=== PATIENT | male | born 1945 | race Caucasian/White ===

== ENCOUNTER 2021-01-01 11:49 | Observation (INO) ==
[2021-01-01] MEDS ORDERED: NITROGLYCERIN 2% OINTMENT 30GM TUBE EXT STA (11:55)
--- NOTE | 2021-01-01 12:09 | Emergency Department Note ---
History of Present Illness General Chief complaint: Chest Pain Stated complaint: CHEST PAIN,PAIN AND TINGLING DOWN ARM Time Seen by Provider: 01/01/21 11:55 Source: patient History of Present Illness Provider complaint: Chest pain Onset (ago): hour(s) Location: chest and left Radiation: extremity (Left shoulder and arm) Pain Consistency: + constant Maximum Pain Intensity: 6 Quality: + aching Relieved By: + none Exacerbated By: + none Associated symptoms: no chest pain, no cough, no diaphoresis, no fever/chills, no nausea/vomiting or no shortness of breath This is a 75-year-old male who presents with chest discomfort starting an hour prior to arrival. He describes it as an ache on the left side of his chest rating into his left shoulder and arm. He rates it as 6/10 already. No associated shortness of breath, diaphoresis, nausea or lightheadedness. He denies any history of cardiac disease. He is prediabetic and takes a baby aspirin daily. He states that he took a full dose aspirin just prior to arrival. He denies any recent illness, fever, cough or cold symptoms, abdominal pain, vomiting, diarrhea, urinary symptoms, leg swelling or pain or recent immobilization. He is vaccinated for COVID-19. Home Medications Medication Instructions Recorded Confirmed Type rosuvastatin 40 mg tablet 40 mg PO QAM #0 tab 09/16/12 01/01/21 History aspirin 81 mg chewable tablet 81 mg PO Q OTHER DAY #0 03/18/13 01/01/21 History metformin 500 mg tablet 500 mg PO BID 12/16/17 01/01/21 History oodgploo-mxq-iudii acid 300 1 tab PO QAM 12/16/17 01/01/21 History mcg-lycopene 600 mcg-lutein 300 mcg tablet (Centrum Silver Men) aspirin 325 mg tablet (Miguel 325 mg PO ONCE 01/01/21 01/01/21 History Aspirin) Allergies Allergy/AdvReac Type Severity Reaction Status Date / Time erythromycin base Allergy Intermediate Rash/ Unverified 01/01/21 13:10 Itching Past Med/Surg History Medical History Diabetes Hyperlipidemia Hypertension Family History Other No significant family history Social History Smoking Status: Never smoker Tobacco Type: Cigarettes Hx Alcohol Use: Yes Alcohol type: wine Hx Substance Use: No Preferred Language: Chadian Communication Ability: Effective Accounting Teacher Required: No Beliefs That Will Affect Care: None Current Living Situation: Alone Other Information That Helps Us Care for You: No Feels Safe at Home: Yes Safety Concerns: Feels Safe At This Time Assistive Devices: Glasses Review of Systems See HPI for pertinent positives & negatives. and A total of 10 systems reviewed and were otherwise negative Physical Exam Vital Signs Vital Signs - 24 hr 01/01/21 11:41 01/01/21 11:52 01/01/21 12:02 Temperature 36.7 C Temperature Source Temporal Artery Scan Pulse Rate 79 90 74 Pulse Rate [Apical] Pulse Rate from SpO2 Sensor 74 Respiratory Rate 19 18 13 Respiratory Effort / Characteristics Respiratory Depth Respiratory Pattern Blood Pressure 182/99 H 212/90 H 199/89 H Blood Pressure [Left Arm] Blood Pressure Mean 126 130 125 Blood Pressure Mean [Left Arm] Blood Pressure Position Sitting Pulse Oximetry 99 100 Oxygen Delivery Method Room Air Sepsis Recent Fever Within 48 Hours No Sepsis New/Unexplained Change in Mental Status N/A Sepsis Action Taken by Nursing No Action Required 01/01/21 12:12 01/01/21 12:13 01/01/21 12:30 Temperature Temperature Source Pulse Rate 80 71 69 Pulse Rate [Apical] 74 Pulse Rate from SpO2 Sensor 78 69 Respiratory Rate 23 20 19 Respiratory Effort / Characteristics Non-Labored Spontaneous Respiratory Depth Normal Respiratory Pattern Regular Blood Pressure 179/80 H 178/76 H Blood Pressure [Left Arm] 179/80 H Blood Pressure Mean 113 110 Blood Pressure Mean [Left Arm] 113 Blood Pressure Position Pulse Oximetry 99 99 98 Oxygen Delivery Method Room Air Sepsis Recent Fever Within 48 Hours Sepsis New/Unexplained Change in Mental Status Sepsis Action Taken by Nursing 01/01/21 13:00 01/01/21 13:30 01/01/21 14:00 Temperature Temperature Source Pulse Rate 70 62 64 Pulse Rate [Apical] Pulse Rate from SpO2 Sensor 71 62 64 Respiratory Rate 23 23 17 Respiratory Effort / Characteristics Respiratory Depth Respiratory Pattern Blood Pressure 166/64 H 163/75 H 158/75 H Blood Pressure [Left Arm] Blood Pressure Mean 98 104 102 Blood Pressure Mean [Left Arm] Blood Pressure Position Pulse Oximetry 98 97 97 Oxygen Delivery Method Sepsis Recent Fever Within 48 Hours Sepsis New/Unexplained Change in Mental Status Sepsis Action Taken by Nursing Constitutional: Vital signs reviewed. Eyes: Pupils are equal round reactive to light. Conjunctiva are noninjected. ENT: Pharynx is clear without erythema or exudate. Mucous membranes are moist. Neck supple without meningeal signs. Respiratory: Clear to auscultation bilaterally. Breath sounds are equal bi laterally. Cardiovascular: Regular rate and rhythm. No rubs or gallops. GI: Soft, nondistended and nontender. Bowel sounds are present. Musculoskeletal: No peripheral edema. No lower extremity tenderness. Integumentary: No cyanosis. or jaundice. Neurological: The patient is awake and alert. No focal deficits. Psychiatric: Normal affect. Slightly anxious. Course Administered Medications Discontinued Medications Nitroglycerin (Nitroglycerin 2% Ointment 30gm Tube) 1 inch EXT NOW STA Stop: 01/01/21 11:56 Last Admin: 01/01/21 12:10 Dose: 1 inch Documented by: [id number] Medical Decision Making Differential Diagnosis Unstable angina, MA, anxiety, GERD, pneumonia Medical Records Attestation: I reviewed the patient's medical records. I did perform a limited focused review of portions of the patient's old chart on the electronic medical record. The patient was seen here in 2018 for chest tightness and shortness of breath. He had to negative troponins here and was discharged for outpatient follow-up. Home Medications Current Medication List: was personally reviewed by me Laboratory Data Attestation: I reviewed the patient's lab results. Result diagrams: 01/01/21 12:08 01/01/21 12:08 Lab Results 01/01/21 01/01/21 01/01/21 Range/Units 12:08 12:08 12:08 WBC 6.87 (4.8-10.8) K/uL RBC 5.45 (4.7-6.1) M/uL Hgb 16.2 (14.0-18.0) g/dL Hct 49.0 (42-52) % MCV 89.9 (80-100) fL MCH 29.7 (25-34) pg MCHC 33.1 (32-36) g/dL RDW Std Deviation 44.3 (36.4-46.3) fL RDW Coeff of Alise 13.5 (11.5-14.5) % Plt Count 202 (130-400) K/uL MPV 10.9 H (7.4-10.4) fL Immature Gran % (Auto) 0.0 % Neut % (Auto) 42.2 % Lymph % (Auto) 48.9 % Mcmullen % (Auto) 7.1 % Eos % (Auto) 1.7 % Baso % (Auto) 0.1 % Neut # (Auto) 2.89 (1.4-6.5) K/uL Lymph # (Auto) 3.36 (1.2-3.4) K/uL Mcmullen # (Auto) 0.49 (0.11-0.59) K/uL Eos # (Auto) 0.12 (0-0.5) K/uL Baso # (Auto) 0.01 (0-0.2) K/uL Immature Gran # (Auto) 0.00 (0.00-0.02) K/uL APTT 23.8 (21.0-31.0) Seconds PTT Ratio 0.9 Sodium 141 (136-145) mmol/L Potassium 4.0 (3.5-5.1) mmol/L Chloride 105 (98-107) mmol/L Carbon Dioxide 25 (21-32) mmol/L Anion Gap 11.0 (3-11) BUN 16 (7-18) mg/dl Creatinine 1.06 (0.6-1.4) mg/dl Est Cr Clr Drug Dosing 67.3 ml/min Est GFR ( Amer) 79.7 ml/min Est GFR (Non-Af Amer) 68.8 ml/min BUN/Creatinine Ratio 14.7 (10-20) Glucose 100 H (70-99) mg/dl Calcium 9.3 (8.5-10.1) mg/dl Total Bilirubin 0.6 (0.2-1) mg/dl AST 25 (15-37) U/L ALT 30 (12-78) U/L Alkaline Phosphatase 73 (45-117) U/L Troponin I < 0.015 (0-0.045) ng/ml Total Protein 8.2 (6.4-8.2) gm/dl Albumin 4.4 (3.4-5.0) gm/dl Globulin 3.8 (2.5-4.0) gm/dl Albumin/Globulin Ratio 1.2 (0.9-2) Lipase 204 (73-393) U/L Specimen Hemolysis COVID-19 Eval Order SARS-CoV-2 (PCR) (Negative) 01/01/21 01/01/21 Range/Units 12:20 12:20 WBC (4.8-10.8) K/uL RBC (4.7-6.1) M/uL Hgb (14.0-18.0) g/dL Hct (42-52) % MCV (80-100) fL MCH (25-34) pg MCHC (32-36) g/dL RDW Std Deviation (36.4-46.3) fL RDW Coeff of Alise (11.5-14.5) % Plt Count (130-400) K/uL MPV (7.4-10.4) fL Immature Gran % (Auto) % Neut % (Auto) % Lymph % (Auto) % Mcmullen % (Auto) % Eos % (Auto) % Baso % (Auto) % Neut # (Auto) (1.4-6.5) K/uL Lymph # (Auto) (1.2-3.4) K/uL Mcmullen # (Auto) (0.11-0.59) K/uL Eos # (Auto) (0-0.5) K/uL Baso # (Auto) (0-0.2) K/uL Immature Gran # (Auto) (0.00-0.02) K/uL APTT (21.0-31.0) Seconds PTT Ratio Sodium (136-145) mmol/L Potassium (3.5-5.1) mmol/L Chloride (98-107) mmol/L Carbon Dioxide (21-32) mmol/L Anion Gap (3-11) BUN (7-18) mg/dl Creatinine (0.6-1.4) mg/dl Est Cr Clr Drug Dosing ml/min Est GFR ( Amer) ml/min Est GFR (Non-Af Amer) ml/min BUN/Creatinine Ratio (10-20) Glucose (70-99) mg/dl Calcium (8.5-10.1) mg/dl Total Bilirubin (0.2-1) mg/dl AST (15-37) U/L ALT (12-78) U/L Alkaline Phosphatase (45-117) U/L Troponin I (0-0.045) ng/ml Total Protein (6.4-8.2) gm/dl Albumin (3.4-5.0) gm/dl Globulin (2.5-4.0) gm/dl Albumin/Globulin Ratio (0.9-2) Lipase (73-393) U/L Specimen Hemolysis COVID-19 Eval Order Covid19 at [facility] SARS-CoV-2 (PCR) NEGATIVE (Negative) Imaging Data Radiologist's Impression: Chest X-Ray 01/01/21 11:55 SINGLE VIEW CHEST CLINICAL HISTORY: Atypical chest pain. FINDINGS: An AP, portable, upright chest radiograph is compared to study dated 12/16/2017 and correlated with chest CT dated 03/17/2013. The examination is degraded by portable technique and apical lordotic positioning. The heart is enlarged noting atherosclerotic calcification of the thoracic aorta. The pu lmonary vasculature is noncongested. Chronic interstitial thickening is similar to previous. Mild scarring/atelectasis is noted at the lung bases. The lungs and pleural spaces are otherwise clear. No pneumothorax is seen. The skeletal structures are osteopenic. The bony thorax is grossly intact. IMPRESSION: Cardiomegaly with no acute cardiopulmonary abnormality. ACT 112: Negative or not required by law. Electronically signed by: Chester Olivier M.D. 01/01/2021 1:02 PM ECG Data Attestation: I personally reviewed and interpreted this ECG as follows: Indication: + chest pain Rate (beats per minute): 73 Rhythm: + normal sinus ECG [place]: + Normal ECG ST segments: no ST elevation ECG Findings: no PVCs Comparison ECG Date: from (December 16, 2017) Change: the following changes noted (Previously had an incomplete right bundle branch block) MDM Narrative I did evaluate the patient as noted above. He is presenting with chest pain wh ile at rest and severe hypertension. IV access was established. I did treat him with nitroglycerin paste 1 inch to the anterior chest wall. He did take a full dose aspirin prior to arrival. I did place an order for continuous cardiac monitoring. The monitor showed normal sinus rhythm at a rate of 70 bpm. I did order and personally review the patient's 12-lead EKG as described above. He has no acute ischemic changes. I did order and personally reviewed the images of the patient's chest x-ray as described above. There is no evidence of acute cardiopulmonary process. I did order and review the patient's blood work as noted in the electronic medical record. CBC is unremarkable without leukocytosis or anemia. Electrolytes are unremarkable and his troponin is negative although he only had pain for an hour prior to arrival. On reexamination I did discuss the test results with him. I did discuss the limitations of the work-up here in the emergency department as well as his heart score. I did recommend hospitalization for further care and evaluation. He states that his chest pain is now resolved. He also states that he no longer has shoulder or arm discomfort. His blood pressure has come down to 144/70. After making arrangements for his dog he was agreeable to hospitalization. I did discuss the case with the hospitalist and patient case manager. Impression & Plan Chest pain, Hypertensive urgency Discharge Plan Visit Data Chief Complaint: Chest Pain Stated Complaint: CHEST PAIN,PAIN AND TINGLING DOWN ARM ED Provider: Tyler Quinn Discharge Problem: Chest pain, Hypertensive urgency Patient Disposition: Admitted As Inpatient Discharge Instructions Interventions: ED Discharge Assessment Last Done: 01/01/21 15:10
[2021-01-01 12:38] LABS: Basophils # (auto) 0.01 K/uL (0-0.2); Basophils % (auto) 0.1 %; Eosinophils # (auto) 0.12 K/uL (0-0.5); Eosinophils % (auto) 1.7 %; Hemoglobin 16.2 g/dL (14.0-18.0); Lymphocytes # (auto) 3.36 K/uL (1.2-3.4); Lymphocytes % (auto) 48.9 %; Mean Corpuscular Hemoglobin 29.7 pg (25-34); Mean Corpuscular Hgb Conc 33.1 g/dL (32-36); Mean Corpuscular Volume 89.9 fL (80-100); Mean Platelet Volume 10.9 fL (7.4-10.4); Monocytes # (auto) 0.49 K/uL (0.11-0.59); Monocytes % (auto) 7.1 %; Neutrophils # (auto) 2.89 K/uL (1.4-6.5); Neutrophils % (auto) 42.2 %; Platelet Count 202 K/uL (130-400); RDW Coefficient of Variation 13.5 % (11.5-14.5); RDW Standard Deviation 44.3 fL (36.4-46.3); Red Blood Count 5.45 M/uL (4.7-6.1); White Blood Count 6.87 K/uL (4.8-10.8)
[2021-01-01 12:48] LABS: Partial Thromboplastin Ratio 0.9; Partial Thromboplastin Time 23.8 Seconds (21.0-31.0)
--- NOTE | 2021-01-01 13:03 | XRay Report ---
SINGLE VIEW CHEST CLINICAL HISTORY: Atypical chest pain. FINDINGS: An AP, portable, upright chest radiograph is compared to study dated 12/16/2017 and correlat ed with chest CT dated 03/17/2013. The examination is degraded by portable technique and apical lordo tic positioning. The heart is enlarged noting atherosclerotic calcification of the thoracic aorta. Th e pulmonary vasculature is noncongested. Chronic interstitial thickening is similar to previous. Mild scarring/atelectasis is noted at the lung bases. The lungs and pleural spaces are otherwise clear. N o pneumothorax is seen. The skeletal structures are osteopenic. The bony thorax is grossly intact. IMPRESSION: Cardiomegaly with no acute cardiopulmonary abnormality. ACT 112: Negative or not required by law. Electronically signed by: Chester Olivier M.D. 01/01/2021 1:02 PM
[2021-01-01 13:06] LABS: Alanine Aminotransferase 30 U/L (12-78); Albumin Globulin Ratio 1.2 (0.9-2); Albumin Level 4.4 gm/dl (3.4-5.0); Alkaline Phosphatase 73 U/L (45-117); Aspartate Aminotransferase 25 U/L (15-37); BUN Creatinine Ratio 14.7 (10-20); Bilirubin,Total 0.6 mg/dl (0.2-1); Blood Urea Nitrogen 16 mg/dl (7-18); Calcium 9.3 mg/dl (8.5-10.1); Carbon Dioxide 25 mmol/L (21-32); Chloride 105 mmol/L (98-107); Creatinine Clr Calc Pharmacy 67.3 ml/min; Est GFR (African American) 79.7 ml/min; Est GFR (Non-African American) 68.8 ml/min; Globulin 3.8 gm/dl (2.5-4.0); Glucose 100 mg/dl (70-99); Lipase 204 U/L (73-393); Sodium 141 mmol/L (136-145); Total Protein 8.2 gm/dl (6.4-8.2); Troponin I < 0.015 ng/ml (0-0.045)
--- NOTE | 2021-01-01 14:29 | History & Physical Report ---
Date of Service January 01, 2021 Assessment & Plan (1) Chest pain: Plan: This is a 75-year-old male with PMH of dyslipidemia, prediabetes and other medical problems listed below who presents with pain in left arm earlier today that is since resolved. R/o ACS; risk factors include family history, HLD, prediabetes Considering MSK etiology given recently resumed upper body strength training Initial troponin negative EKG NSR, no changes from previous CXR without acute abnormality Trend serial cardiac enzymes Continue aspirin, statin Check echo Repeat EKG in am Cardiology consulted (2) Hypertensive urgency: Plan: Initial BPs 182/99 and then 212/90 Improved since nitro paste 1" applied, now 144/70 BP typically well controlled around 130/60 Continue ntg paste 1" Q6H with hold parameters (3) Hyperlipidemia: Plan: Recent outpatient lipid panel WNL Continue statin (4) Prediabetes: Plan: Hgb a1c in AM DVT Ppx: SQ heparin Code status: FULL PCP: Cindi Dispo: Observation telemetry Patient seen in collaboration with Dr. Campos. Please see addendum. History of Present Illness Chief Complaint: Left shoulder discomfort Primary Care Provider: Ciro Puente MD This is a 75-year-old male with PMH of dyslipidemia, prediabetes and other medical problems listed below who presents with pain in left arm earlier today that is since resolved. Patient is very active and walks at least 3 miles every morning. Also recently resumed upper body strength training regimen. After returning from a walk earlier this morning and while reading, patient developed tingling in left arm down to fingers as well as pain in posterior shoulder radiating into axilla and upper chest. Denies marbin chest pain. No associated shortness of breath, diaphoresis, nausea or vomiting. Symptoms persisted so patient came to ED for further evaluation. Had a similar episode to this a few years ago and underwent a cardiac work-up during observation that was negative. Completed exercise stress test at that time. Does have significant family history of coronary disease in both father and brother. Follows with Dr. Morales as an outpatient. Takes a baby aspirin every other day as well as a statin and lipids are controlled per October lipid panel in [facility]. Former smoker who quit years ago. Since nitro paste was placed, pain has resolved completely. Denies any fever, chills, lightheadedness, headache, chest pain, palpitations, shortness of breath, nausea, vomiting, abdominal pain, dysuria, diarrhea or constipation. Allergies Allergy/AdvReac Type Severity Reaction Status Date / Time erythromycin base Allergy Intermediate Rash/ Unverified 01/01/21 13:10 Itching Home Medications Medication Instructions Recorded Confirmed Type rosuvastatin 40 mg tablet 40 mg PO QAM #0 tab 09/16/12 01/01/21 History metformin 500 mg tablet 500 mg PO BID 12/16/17 01/01/21 History gkouhnle-gou-nkagj acid 300 1 tab PO QAM 12/16/17 01/01/21 History mcg-lycopene 600 mcg-lutein 300 mcg tablet (Centrum Silver Men) amlodipine 5 mg tablet (Norvasc) 2.5 mg PO QAM #15 tab 01/02/21 Rx aspirin 81 mg chewable tablet 81 mg PO DAILY #0 tab 01/02/21 01/01/21 Rx Past Med/Surg History Medical History Angioneurotic edema Depression Hyperlipidemia Prediabetes Surgical History Status post arthroscopic knee surgery Family History Father , Coronary heart disease, carotid disease Coronary heart disease Brother Coronary heart disease History of ischemic cardiomyopathy, cardiac transplant Social History Smoking Status: Former smoker Tobacco Type: Cigarettes Smoking End Date: 2012; Hx Alcohol Use: Yes Alcohol type: wine Alcohol Intake Frequency Comment: 1 glass every night Hx Substance Use: No Preferred Language: Armenian Communication Ability: Effective Dance Therapist Required: No Beliefs That Will Affect Care: None Current Living Situation: Alone How many Children do You have: 0 Other Information That Helps Us Care for You: No Feels Safe at Home: Yes Safety Concerns: Feels Safe At This Time Assistive Devices: None Review of Systems Review of Systems: At least ten systems reviewed and negative except as noted in the HPI. Physical Exam Physical Exam: General Appearance: WD/WN, vitals as above, NAD, sitting up in bed, pleasant, conversing easily Head: normocephalic, atraumatic Eyes: normal inspection, PERRL, conjunctivae normal, anicteric sclerae ENT: external ear and nose normal, oropharynx normal Neck: normal visual inspection, trachea midline, no thyromegaly Respiratory: normal respiratory effort, lungs clear to auscultation, no wheeze, rales, rhonchi. No accessory muscle use Cardiovascular: regular rate, rhythm, no murmur, normal peripheral pulses, no BLE edema. Vessels: no JVD Chest: normal inspection of chest Abdomen/GI: normal bowel sounds, soft, nontender, no hepatosplenomegaly Extremities/Musculoskeletal: no cyanosis or clubbing, extremities motor strength 5/5 Neurologic: PERRL, EOMI, accommodation nl, no face palsy, no dysarthria, CN's II-XI intact bilaterally and moves all extremities Psychiatric: A+Ox3, euthymic affect Skin: no rashes, normal color, warm/dry Results & Data Results & Data ([facility]) Vital Signs (Past 12 Hours) Vital Signs Temp Pulse Pulse Resp BP BP Pulse Ox 01/01/21 12:13 71 74 20 179/80 H 99 01/01/21 11:52 36.7 C 90 18 212/90 H 99 Laboratory Results Short CBC 01/01/21 Range/Units 12:08 WBC 6.87 (4.8-10.8) K/uL Hgb 16.2 (14.0-18.0) g/dL Hct 49.0 (42-52) % Plt Count 202 (130-400) K/uL BMP 01/01/21 12:08 Sodium 141 Potassium 4.0 Chloride 105 Carbon Dioxide 25 BUN 16 Creatinine 1.06 Glucose 100 H Calcium 9.3 Cardiac Enzymes 01/01/21 01/01/21 Range/Units 12:08 17:52 Troponin I < 0.015 < 0.015 (0-0.045) ng/ml Liver Function 01/01/21 Range/Units 12:08 Total Bilirubin 0.6 (0.2-1) mg/dl AST 25 (15-37) U/L ALT 30 (12-78) U/L Alkaline Phosphatase 73 (45-117) U/L Albumin 4.4 (3.4-5.0) gm/dl Diagnostic Findings Chest X-Ray 01/01/21 11:55 SINGLE VIEW CHEST CLINICAL HISTORY: Atypical chest pain. FINDINGS: An AP, portable, upright chest radiograph is compared to study dated 12/16/2017 and correlated with chest CT dated 03/17/2013. The examination is degraded by portable technique and apical lordotic positioning. The heart is enlarged noting atherosclerotic calcification of the thoracic aorta. The pulmonary vasculature is noncongested. Chronic interstitial thickening is similar to previous. Mild scarring/atelectasis is noted at the lung bases. The lungs and pleural spaces are otherwise clear. No pneumothorax is seen. The skeletal structures are osteopenic. The bony thorax is grossly intact. IMPRESSION: Cardiomegaly with no acute cardiopulmonary abnormality. ACT 112: Negative or not required by law. Electronically signed by: Chester Olivier M.D. 01/01/2021 1:02 PM ECG Additional Comments: NSR Code Status & VTE Plan VTE Prophylaxis Plan VTE Prophylaxis will be ordered: Yes Supervising Physician Co-Signing Physician Notes Pt was seen and examined. Agreed with Kassandra CASTILLO exam, assessment and plan. 75-year-old male with PMH of dyslipidemia, prediabetes and other medical problems listed below who presents with pain in left arm today that is since resolved. Patient is very active and walks at least 3 miles every morning. He said that this morning and while reading, he developed tingling in left arm down to fingers as well as pain in posterior shoulder radiating into axilla and upper chest. Denies marbin chest pain, shortness of breath, diaphoresis, nausea or vomiting. His symptoms seems to be MSK but need to r/o ACS. On admission EKG showed no acute ischemic changes. Troponin negative on admission. Will follow trop, Will get an echo. Cardiology eval to assess for stress test n am. Will continue monitor in tele. MD Beth (1) Chest pain Chest pain type: unspecified Qualified Code(s): R07.9 - Chest pain, unspecified
[2021-01-01] MEDS ORDERED: ONDANSETRON INJ 2 MG/ML 2 ML VIAL IV PRN (15:34)
[2021-01-01] MEDS ORDERED: POLYETHYLENE (MIRALAX) 17 GM PACK PO PRN (15:34)
[2021-01-01] MEDS ORDERED: ACETAMINOPHEN 325 MG TAB PO PRN (15:34)
--- NOTE | 2021-01-01 17:08 | Cardiology Consultation ---
Date of Consultation January 01, 2021 Assessment & Plan (1) Chest pain: (2) Hypertensive urgency: His presenting blood pressure was 182/99 and then 212/90, post recent repeat measurement was 144/70, and as noted, topical on nitroglycerin has been applied. His blood pressure is typically relatively well controlled. His symptoms may be due to cervical radiculopathy with a recent change in his strength training program. He does however have risk factors including personal history of dyslipidemia and a strong family history of ischemic heart disease as noted above with his father having had coronary heart disease, carotid disease, and his brother has a history of cardiac transplant due to ischemic cardiomyopathy. Patient is to remain admitted on the telemetry floor, serial troponin levels to be obtained, n.p.o. after midnight, further ischemic work-up to be performed based on results as his hospitalization develops. History of Present Illness Attending Physician: Alexandra Campos MD History of Present Illness Salvatore Beach is a 75-year old male seen in cardiology consultation per the request of Kassandra Abdi PA-C for the evaluation of left chest and arm pain. The patient actually follows with the undersigned as an outpatient due to a strong family history of ischemic heart disease, and a personal history of dyslipidemia. He states that he has been doing well today. He has been walking regularly 3 miles (this is in addition to walking his elderly dog) and has recently started a free weight program performing upper body exercises with free weights as well as rubber bands. He had gone for a walk with the start this morning, and shortly thereafter while reading, he started noting tingling in his left forearm down to his hand, and also a pain in his left shoulder, axilla, left upper chest, and shoulder blade. Symptoms persisted, prompting him to come to the emergency department. His EKG on arrival revealed normal sinus rhythm without ST changes to suggest ischemia, his troponin I is negative x1. He is currently comfortable, in the PCU, room 239-2. Topical nitroglycerin has been applied and he is tolerating it well without side effect. He is eating his evening meal. He states his only residual discomfort is in the left shoulder blade, and he thinks he can make this better by changing the position of his left arm. Family History: Patient's father at the age of 70 of a presumed myocardial infarction. He had a history of what sounds like a carotid endarterectomy surgery which was complicated by stroke. The patient's brother has a history of ischemic cardiomyopathy, he has a history of left ventricular assist device, followed by transplant performed with the [facility] in [place]. Allergies Allergy/AdvReac Type Severity Reaction Status Date / Time erythromycin base Allergy Intermediate Rash/ Unverified 01/01/21 13:10 Itching Home Medications Medication Instructions Recorded Confirmed Type rosuvastatin 40 mg tablet 40 mg PO QAM #0 tab 09/16/12 01/01/21 History aspirin 81 mg chewable tablet 81 mg PO Q OTHER DAY #0 03/18/13 01/01/21 History metformin 500 mg tablet 500 mg PO BID 12/16/17 01/01/21 History [id number]-[id number] acid 300 1 tab PO QAM 12/16/17 01/01/21 History mcg-lycopene 600 mcg-lutein 300 mcg tablet (Centrum Silver Men) aspirin 325 mg tablet (Miguel 325 mg PO ONCE 01/01/21 01/01/21 History Aspirin) Patient History Medical History Diabetes Hyperlipidemia Hypertension Family History Father , Coronary heart disease, carotid disease Coronary heart disease Brother Coronary heart disease History of ischemic cardiomyopathy, cardiac transplant Other No significant family history Social History Smoking Status: Never smoker Tobacco Type: Cigarettes Hx Alcohol Use: Yes Alcohol type: wine Hx Substance Use: No Preferred Language: [place] Citizen Communication Ability: Effective Manager Valuation Required: No Beliefs That Will Affect Care: None Current Living Situation: Alone Other Information That Helps Us Care for You: No Feels Safe at Home: Yes Safety Concerns: Feels Safe At This Time Assistive Devices: Glasses Review of Systems Review of Systems: All systems reviewed & are unremarkable except as noted in HPI & below Physical Exam Physical Exam: Temp Pulse Resp BP Pulse Ox 36.9 C 68 16 144/70 H 99 01/01/21 16:05 01/01/21 16:05 01/01/21 16:05 01/01/21 16:05 01/01/21 16:05 Constitutional: WD/WN, vitals as above Respiratory: normal respiratory effort, lungs clear to auscultation Cardiovascular: RRR, no murmur, no edema Gastrointestinal (Abdomen): normal bowel sounds, soft, nontender, no hepatosplenomegaly Neurologic: PERRL, EOMI, accommodation nl, no face palsy, no dysarthria Results & Data ([facility]) Vital Signs (Past 12 Hours) Vital Signs Temp Pulse Pulse Pulse Resp BP BP 01/01/21 16:05 36.9 C 68 16 01/01/21 15:10 62 18 163/75 H 01/01/21 15:00 66 18 156/71 H 01/01/21 14:30 68 19 151/66 H 01/01/21 14:00 64 17 158/75 H 01/01/21 13:30 62 23 163/75 H 01/01/21 13:00 70 23 166/64 H 01/01/21 12:30 69 19 178/76 H 01/01/21 12:13 71 74 20 179/80 H 01/01/21 12:12 80 23 179/80 H 01/01/21 12:02 74 13 199/89 H 01/01/21 11:52 36.7 C 90 18 212/90 H 01/01/21 11:41 79 19 182/99 H BP Pulse Ox 01/01/21 16:05 144/70 H 99 01/01/21 15:10 97 01/01/21 15:00 98 01/01/21 14:30 98 01/01/21 14:00 97 01/01/21 13:30 97 01/01/21 13:00 98 01/01/21 12:30 98 01/01/21 12:13 99 01/01/21 12:12 99 01/01/21 12:02 100 01/01/21 11:52 99 01/01/21 11:41 Laboratory Results Cardiac Enzymes 01/01/21 Range/Units 12:08 AST 25 (15-37) U/L Troponin I < 0.015 (0-0.045) ng/ml Coagulation 01/01/21 Range/Units 12:08 APTT 23.8 (21.0-31.0) Seconds CBC 01/01/21 Range/Units 12:08 WBC 6.87 (4.8-10.8) K/uL RBC 5.45 (4.7-6.1) M/uL Hgb 16.2 (14.0-18.0) g/dL Hct 49.0 (42-52) % Plt Count 202 (130-400) K/uL Neut # (Auto) 2.89 (1.4-6.5) K/uL Lymph # (Auto) 3.36 (1.2-3.4) K/uL [place] # (Auto) 0.49 (0.11-0.59) K/uL Eos # (Auto) 0.12 (0-0.5) K/uL Baso # (Auto) 0.01 (0-0.2) K/uL Comprehensive Metabolic Panel 01/01/21 Range/Units 12:08 Sodium 141 (136-145) mmol/L Potassium 4.0 (3.5-5.1) mmol/L Chloride 105 (98-107) mmol/L Carbon Dioxide 25 (21-32) mmol/L BUN 16 (7-18) mg/dl Creatinine 1.06 (0.6-1.4) mg/dl Glucose 100 H (70-99) mg/dl Calcium 9.3 (8.5-10.1) mg/dl AST 25 (15-37) U/L ALT 30 (12-78) U/L Alkaline Phosphatase 73 (45-117) U/L Total Protein 8.2 (6.4-8.2) gm/dl Albumin 4.4 (3.4-5.0) gm/dl Intake and Output 01/01/21 01/01/21 01/01/21 06:59 14:59 22:59 Intake Total 250 / 250 Output Total 450 / 450 Balance -200 / -200 Intake: Oral 250 / 250 Output: Urine 450 / 450 Other: Weight 88.5 kg 88.5 kg Weight Measurement Method Chair Scale Chair Scale Patient Weight 01/02/21 06:59 Weight 88.5 kg (1) Chest pain Chest pain type: unspecified Qualified Code(s): R07.9 - Chest pain, unspecified
[2021-01-01] MEDS: NITROGLYCERIN 2% OINTMENT 30GM TUBE EXT SCH (17:36)
[2021-01-01] MEDS: HEPARIN SOD 5,000 UNIT/0.5 ML VIAL SQ SCH (21:30)
[2021-01-02] MEDS: NITROGLYCERIN 2% OINTMENT 30GM TUBE EXT SCH ×2 (00:05→06:23)
[2021-01-02] MEDS: HEPARIN SOD 5,000 UNIT/0.5 ML VIAL SQ SCH (06:23)
--- NOTE | 2021-01-02 06:26 | Electrocardiogram Report ---
Test Reason : Blood Pressure : / mmHG Vent. Rate : 073 BPM Atrial Rate : 073 BPM P-R Int : 150 ms QRS Dur : 094 ms QT Int : 372 ms P-R-T Axes : 042 007 034 degrees QTc Int : 409 ms Normal sinus rhythm Normal ECG When compared with ECG of 16-DEC-2017 19:10, No significant change was found Confirmed by Ulices French ([id number]) on 01/02/2021 6:25:51 AM Referred By: REFERRED SELF Confirmed By:Ulices French
[2021-01-02] MEDS ORDERED: CEROVITE ADV FORMULA TAB PO SCH (09:00)
[2021-01-02] MEDS ORDERED: ROSUVASTATIN CALCIUM 20 MG TAB PO SCH ×2 (09:00)
[2021-01-02] MEDS ORDERED: ASPIRIN 81 MG ECTAB PO SCH (09:00)
[2021-01-02] MEDS ORDERED: amLODIPine BESYLATE 5 MG TAB PO SCH (09:15)
--- NOTE | 2021-01-02 09:19 | Cardiology Progress Note ---
Date of Service January 02, 2021 Assessment & Plan (1) Chest pain: Plan: Nonischemic stress echo. 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 Continue risk factor modification with ASA and rosuvastatin. (2) Hypertensive urgency: Plan: BP elevated on presentation with hypertensive BP response to exercise, SBP as high as ~230 mm Hg. SBP as outpatient often in the 130s. Start low dose amlodipine 2.5 mg daily. DISPOSITION: Stable for discharge after dose of amlodipine. Already has follow up with me planned for February. Plan: His presenting blood pressure was 182/99 and then 212/90, post recent repeat measurement was 144/70, and as noted, topical on nitroglycerin has been applied. His blood pressure is typically relatively well controlled. His symptoms may be due to cervical radiculopathy with a recent change in his strength training program. He does however have risk factors including personal history of dyslipidemia and a strong family history of ischemic heart disease as noted above with his father having had coronary heart disease, carotid disease, and his brother has a history of cardiac transplant due to ischemic cardiomyopathy. Patient is to remain admitted on the telemetry floor, serial troponin levels to be obtained, n.p.o. after midnight, further ischemic work-up to be performed based on results as his hospitalization develops. Admission and Anticipated Discharge Date Admission Date: January 01, 2021 Subjective Patient seen prior to, during, and post exercise stress echo. No symptoms suggestive of angina overnight. BP down 122/63. Review of Systems Review of Systems: All systems reviewed & are unremarkable except as noted in HPI & below Physical Exam Physical Exam: Temp Pulse Resp BP Pulse Ox 37.2 C 65 12 122/63 98 01/02/21 07:21 01/02/21 07:21 01/02/21 07:21 01/02/21 07:21 01/02/21 07:21 Constitutional: WD/WN, vitals as above Respiratory: normal respiratory effort, lungs clear to auscultation Cardiovascular: RRR, no murmur, no edema Neurologic: PERRL, EOMI, accommodation nl, no face palsy, no dysarthria Results & Data ([facility]) Vital Signs (Past 12 Hours) Vital Signs Temp Pulse Resp BP BP Pulse Ox 01/02/21 07:21 37.2 C 65 12 122/63 98 01/02/21 04:23 37 C 69 18 119/57 L 96 01/02/21 00:15 37 C 59 L 18 119/39 L 97 (1) Chest pain Chest pain type: unspecified Qualified Code(s): R07.9 - Chest pain, unspecified
[2021-01-02 10:09] LABS: Hematocrit (blood only) 43.6 % (42-52); Mean Corpuscular Hemoglobin 29.9 pg (25-34); Mean Corpuscular Hgb Conc 34.4 g/dL (32-36); Mean Platelet Volume 9.9 fL (7.4-10.4); Platelet Count 163 K/uL (130-400); RDW Coefficient of Variation 13.3 % (11.5-14.5); RDW Standard Deviation 42.5 fL (36.4-46.3); Red Blood Count 5.01 M/uL (4.7-6.1); White Blood Count 5.38 K/uL (4.8-10.8)
[2021-01-02 10:27] LABS: Estimated Average Glucose 120 mg/dl; Hemoglobin A1C 5.8 % (4.5-5.6)
[2021-01-02 10:33] LABS: BUN Creatinine Ratio 13.1 (10-20); Calcium 9.4 mg/dl (8.5-10.1); Creatinine Clr Calc Pharmacy 69.1 ml/min; Est GFR (African American) 83.5 ml/min; Est GFR (Non-African American) 72.1 ml/min
--- NOTE | 2021-01-02 12:44 | Discharge Summary ---
Date of Service January 02, 2021 Admission HPI Per Admitting Provider This is a 75-year-old male with PMH of dyslipidemia, prediabetes and other medical problems listed below who presents with pain in left arm earlier today that is since resolved. Patient is very active and walks at least 3 miles every morning. Also recently resumed upper body strength training regimen. After returning from a walk earlier this morning and while reading, patient developed tingling in left arm down to fingers as well as pain in posterior shoulder radiating into axilla and upper chest. Denies marbin chest pain. No associated shortness of breath, diaphoresis, nausea or vomiting. Symptoms persisted so patient came to ED for further evaluation. Had a similar episode to this a few years ago and underwent a cardiac work-up during observation that was negative. Completed exercise stress test at that time. Does have significant family history of coronary disease in both father and brother. Follows with Dr. Morales as an outpatient. Takes a baby aspirin every other day as well as a statin and lipids are controlled per October lipid panel in [facility]. Former smoker who quit years ago. Since nitro paste was placed, pain has resolved completely. Denies any fever, chills, lightheadedness, headache, chest pain, palpitations, shortness of breath, nausea, vomiting, abdominal pain, dysuria, diarrhea or constipation. Admission Exam Per Admitting Provider General Appearance: WD/WN, vitals as above, NAD, sitting up in bed, pleasant, conversing easily Head: normocephalic, atraumatic Eyes: normal inspection, PERRL, conjunctivae normal, anicteric sclerae ENT: external ear and nose normal, oropharynx normal Neck: normal visual inspection, trachea midline, no thyromegaly Respiratory: normal respiratory effort, lungs clear to auscultation, no wheeze, rales, rhonchi. No accessory muscle use Cardiovascular: regular rate, rhythm, no murmur, normal peripheral pulses, no BLE edema. Vessels: no JVD Chest: normal inspection of chest Abdomen/GI: normal bowel sounds, soft, nontender, no hepatosplenomegaly Extremities/Musculoskeletal: no cyanosis or clubbing, extremities motor strength 5/5 Neurologic: PERRL, EOMI, accommodation nl, no face palsy, no dysarthria, CN's II-XI intact bilaterally and moves all extremities Psychiatric: A+Ox3, euthymic affect Skin: no rashes, normal color, warm/dry Principal Diagnosis Chest pain, noncardiac Discharge Exam Constitutional WD/WN, vitals as above Respiratory normal respiratory effort, lungs clear to auscultation Cardiovascular Rate/Rhythm: regular rate and regular rhythm Vessels: normal peripheral pulses Extremities: no edema Gastrointestinal (Abdomen) normal bowel sounds, soft, nontender, no hepatosplenomegaly Skin no rashes, warm and dry Neurologic no focal motor deficits Psychiatric A+Ox3, euthymic affect Discharge Data Allergies Allergy/AdvReac Type Severity Reaction Status Date / Time erythromycin base Allergy Intermediate Rash/ Unverified 01/01/21 13:10 Itching Consultations Cardiology-Dr. Morales Procedures Performed none Ordered Studies 01/02/2021-stress echo negative for inducible ischemia Hospital Course (1) Chest pain: (2) Hypertensive urgency: 75-year-old male who presented to the ED on 01/01 for evaluation of left arm pain. Patient observed overnight for ACS rule out. Was also found to be significantly hypertensive with BP 212/90, improved with topical nitroglycerin. Troponins negative x3, EKG without acute ST changes. Patient underwent stress echocardiogram on 01/02/2021 that was negative for inducible ischemia. Patient had reported an increase in upper body strength training. Symptoms likely secondary to this and possibly hypertensive urgency. Evaluated by cardiology who recommended starting amlodipine 2.5 mg daily and continue aspirin and statin. No further episodes of left arm or chest pain since admission. BP prior to discharge 126/70. (3) Prediabetes: Hgb A1c 5.8 Continue Metformin. Total Time Total Time Spent Total Time Spent (In Minutes): 35 Discharge Plan Discharge Items Patient Disposition: Home - Self-Care Reason For Visit: CP, HTNIVE URGENCY Discharge Diagnosis: Chest Pain, non cardiac Activity: Resume your previous activity Non-emergency contact: Primary Care Provider Call non-emergency contact if: you have any medication questions, your symptoms worsen and your pain is worsening Follow-up/Referrals: Ciro Puente MD [Primary Care Provider] - (Date & Time 01/09/2021 11:00 AM Provider Ciro Puente III, MD Department [facility] ) Diet: Heart Healthy Addtl Attending Provider Instructions: You were admitted to the hospital for chest pain and high blood pressure. You had a stress test on 01/02 that was negative. It is felt that your chest pain is likely due to muscular-skeletal causes from recent increase in exercise regimen and high blood pressure. Cardiology started you on a low-dose blood pressure medicine - amlodipine (Norvasc) 2.5mg daily. Start taking aspirin 81mg every day instead of every other day. Continue to monitor your BP at home and provide a log to your PCP at follow up. Continue all other home medicines as prescribed. Pending Studies at Discharge: No Stand-Alone Forms: My [facility], Smoking Cessation Medications and DC Order Prescriptions: New amlodipine [Norvasc] 5 mg Tablet 2.5 mg PO QAM Qty: 15 RF: 0 Continued rosuvastatin 40 mg Tablet 40 mg PO QAM Qty: 0 RF: 0 Centrum Silver Men 300-600-300 mcg Tablet 1 tab PO QAM RF: 0 metformin 500 mg Tablet 500 mg PO BID RF: 0 Changed aspirin 81 mg Tablet,Chewable 81 mg PO DAILY Qty: 0 RF: 0 Discontinued aspirin [Miguel Aspirin] 325 mg Tablet 325 mg PO ONCE RF: 0 Discharge Orders: Discharge Order (Routine); Ordered 01/02/21 Ordered By: Opal Thomson Admission Data Admit Date/Time: 01/01/21 14:27 Attending Provider: Anant Ortiz Admit Provider: Alexandra Campos Primary Care Provider: Ciro Puente Other Providers: Alexandra Campos ; Tuan Morales ; Opal Thomson Other Interventions: Discharge Summary Assessment (RN) Last Done: 01/02/21 11:56 Supervising Physician Co-Signing Physician Notes Patient is seen and examined at bedside. States doing well this morning. Denies any chest pain, shortness breath, dizziness, nausea, abdominal pain. Her stress test earlier today which was nonischemic. Discussed with cardiology today. Patient is moderately built and nourished, no apparent distress, normocephalic atraumatic, EOMI, lungs are clear to auscultation, normal bowel sounds, alert, awake, oriented, grossly no focal deficits, S1-S2, no murmur, abdomen soft, nontender, normal bowel sounds. Chest pain rule out ACS--ruled out. Negative stress test. Hypertensive urgency--added amlodipine as recommended by cardiology. Scheduled for follow-up with cardiology as outpatient in I personally reviewed the record. Patient is interviewed and examined at bedside. Patient's care is coordinated with Opal Thomson AIRPORT REPRESENTATIVE. Please refer to the documentation above for details of patient's presentation and for discussion of other issues.
--- NOTE | 2021-01-03 06:40 | Electrocardiogram Report ---
Test Reason : Blood Pressure : / mmHG Vent. Rate : 066 BPM Atrial Rate : 066 BPM P-R Int : 156 ms QRS Dur : 094 ms QT Int : 390 ms P-R-T Axes : 030 001 018 degrees QTc Int : 408 ms Normal sinus rhythm Normal ECG When compared with ECG of 01-JAN-2021 11:55, No significant change was found Confirmed by Ulices French ([id number]) on 01/03/2021 6:40:21 AM Referred By: REFERRED SELF Confirmed By:Ulices French
== END 2021-01-02 12:18 | disposition home or self-care (01) ==
LOC: ED 11:49 → 2S 11:49 → SUATTDRO 14:27 → 2S 15:10